=== PATIENT | female | born 1970 | race Caucasian/White ===

== ENCOUNTER → 2017-03-30 | Day surgery (SDC) | payer OTHER ==
[~2017-03-30] VITALS: Ht 162.6 cm; Wt 117.0 kg
[~2017-03-30] MED LIST: FERROUS SULFAT325 M3 PO; TOPROL XL25 M1 PO
--- NOTE | 2017-03-30 12:06 | Operative Report ---
Operative/Inv Procedure Report Surgery Date: 03/30/17 Name of Procedure: D&C hysteroscopy Pre-Operative Diagnosis: Metromenorrhagia Post-Operative Diagnosis: Same Estimated Blood Loss: scant Surgeon/Discharge Coordinator: WALTER CARMONA MD Anesthesia: moderate sedation Operative/Procedure Note Note: Patient was taken to the operating room placed in dorsal supine position. After adequate anesthesia, patient was prepped and draped for surgery. Examination under anesthesia was performed. CO2 tenaculum was placed on the anterior lip of the cervix gentle downward traction was used. The cervix was dilated 29 Hegar to left insertion of the hysteroscope. Under direct visualization to hysteroscopy was performed using gas hysteroscope was removed and endocervical curettage was performed. And endometrial curettage was performed. All instruments removed from the vagina. The counts were correct the patient was awakened from anesthesia. And transported to recovery room awake and alert. Findings: Enlarged uterus no adnexal masses
== END ==
LOC: STS 01:12
DX: N92.1 Excessive and frequent menstruation with irregular cycle (principal); N72 Inflammatory disease of cervix uteri; N85.2 Hypertrophy of uterus; I10 Essential (primary) hypertension; E66.9 Obesity, unspecified; Z68.41 Body mass index [BMI] 40.0-44.9, adult
CPT/HCPCS: 36415; 81025; 88305; J2250; J3250